=== PATIENT | female | born 1975 | race African-American/Black ===

== ENCOUNTER 2016-06-23 15:00 | Emergency (ER) | payer MEDICAID, OTHER ==
[~2016-06-23] VITALS: Ht 162.6 cm; Wt 75.0 kg
[2016-06-23 18:54] VITALS: BP 157/75
[2016-06-23] MEDS ORDERED: IBUPROFEN 800MG TABLET PO ONE (19:00)
== END 2016-06-23 20:05 | disposition home or self-care (01) ==
LOC: ER 15:01
DX: M54.9 Dorsalgia, unspecified (principal); M25.552 Pain in left hip; I10 Essential (primary) hypertension; Z87.828 Personal history of other (healed) physical injury and trauma
CPT/HCPCS: 81025; 99283; Z7610